=== PATIENT | male | born 1945 | race Caucasian/White ===

== ENCOUNTER → 2018-02-08 | Outpatient (CLI) | payer MEDICARE ==
[~2018-02-08] MED LIST: BENTYL10 MG PO; BYETTA10 MCG/0.1 SC; CADUET 10 MG-201 TA1 PO; CRESTOR5 MG PO; GLYBURIDE2.5 MG PO; JANUVIA50 MG PO; LANSOPRAZOLE30 MG PO; LOSARTAN POTAS100 MG PO; MECLIZINE HCL50 MG PO; METFORMIN1000 MG PO; METOCLOPRAMIDE5 MG PO; ONGLYZA5 MG PO; PRILOSEC40 M1 PO; PROTONIX40 MG PO; STOOL SOFT-STI1 EACH PO; VICODIN 5/500 505 MG PO
[2018-02-08 08:48] LABS: CREATININE 1.21 mg/dL (0.70-1.30)
== END | disposition home or self-care (01) ==
LOC: LAB 08:24 → CT 09:00
PROVIDERS: Internal Medicine
DX: K21.9 Gastro-esophageal reflux disease without esophagitis (principal); R49.0 Dysphonia; R07.0 Pain in throat; E11.9 Type 2 diabetes mellitus without complications; E78.00 Pure hypercholesterolemia, unspecified

== ENCOUNTER → 2018-02-21 | Outpatient (CLI) | payer MEDICARE | END | disposition home or self-care (01) | LOC: US 07:08 | DX: K76.0 Fatty (change of) liver, not elsewhere classified (principal) ==

== ENCOUNTER → 2018-03-03 | Outpatient (CLI) | payer MEDICARE ==
[~2018-03-03] MED LIST changes: +GLUCOTROL10 MG PO; +IMPOYZ60 GM T; +NORVASC2.5 MG PO; +PAROXETINE10 MG PO; +SEROQUEL200 MG PO; +TRIDERM28.4 GM T; +TRULICITY1.5 MG/0.5 SC
== END | disposition home or self-care (01) ==
LOC: NM 07:00
DX: K59.00 Constipation, unspecified (principal); R10.11 Right upper quadrant pain

== ENCOUNTER 2018-03-12 17:29 | Inpatient (IN) | payer MEDICARE ==
[~2018-03-12] VITALS: Ht 172.7 cm; Wt 73.1 kg
[~2018-03-12 17:29] MED LIST changes: -GLUCOTROL10 MG PO; -IMPOYZ60 GM T; -NORVASC2.5 MG PO; -PAROXETINE10 MG PO; -SEROQUEL200 MG PO; -TRIDERM28.4 GM T; -TRULICITY1.5 MG/0.5 SC
[2018-03-12 17:34] VITALS: BP 175/84
[2018-03-12 18:12] LABS: BASO % 0.3 % (0.0-1.0); EOS # 0.1 10*3/uL (0.0-0.4); EOS % 0.8 % (1.0-4.0); HEMATOCRIT 36.5 % (42.0-52.0); HEMOGLOBIN 12.3 g/dl (14.0-18.0); LYMPH # 1.7 10*3/uL (1.3-4.4); LYMPH % 21.1 % (27.0-41.0); MEAN CELL VOLUME 95.3 fl (80.0-94.0); MEAN CORPUSCULAR HGB 32.1 pg (27.0-31.0); MEAN CORPUSCULAR HGB CONC 33.7 g/dl (33.0-37.0); MEAN PLATELET VOLUME 9.6 fl (9.6-12.3); MONO # 0.5 10*3/uL (0.1-1.0); MONO % 6.6 % (3.0-9.0); NEUT # 5.7 10*3/uL (2.3-7.9); NEUT % 70.8 % (47.0-73.0); PLATELET COUNT AUTOMATED 229 10*3/uL (130-400); RED BLOOD COUNT 3.83 10*6/uL (4.50-5.90); RED CELL DISTRI WIDTH 13.3 % (0-14.5)
[2018-03-12 18:30] LABS: ALBUMIN 3.8 gm/dl (3.1-4.5); ALKALINE PHOSPHATASE 63 U/L (45-117); BUN 31 mg/dl (7-24); CHLORIDE 106 mmol/L (98-107); CREATININE 1.38 mg/dL (0.70-1.30); POTASSIUM 5.1 mmol/L (3.5-5.1); SGOT/AST 17 IU/L (3-35); SGPT/ALT 27 U/L (12-78); SODIUM 139 mmol/L (136-145); TOTAL PROTEIN 7.2 gm/dL (6.4-8.2)
[2018-03-12 18:31] LABS: TROPONIN I < 0.015 ng/ml (<0.045)
[2018-03-12 19:08] LABS: BILIRUBIN 1+ (NEGATIVE); BLOOD NEGATIVE (NEGATIVE); COLOR YELLOW (YELLOW); GLUCOSE TRACE (NEGATIVE); KETONE 1+ (NEGATIVE); LEUKO ESTERASE NEGATIVE (NEGATIVE); NITRITE NEGATIVE (NEGATIVE); SPECIFIC GRAVITY >= 1.030 (1.005-1.030)
[2018-03-12 19:16] LABS: CLARITY SL CLOUDY (CLEAR); HYALINE CAST TNTC; RBC 0-2 rbc/hpf (0-2)
[2018-03-12 19:28] VITALS: BP 142/66
[2018-03-12 19:43] VITALS: BP 152/74
[2018-03-12] MEDS ORDERED: TRULICITY1.5 MG/0.5 SC (19:45)
[2018-03-12] MEDS ORDERED: NORVASC2.5 MG PO (19:47)
[2018-03-12] MEDS ORDERED: GLUCOTROL10 MG PO (19:48)
[2018-03-12] MEDS ORDERED: TRIDERM28.4 GM T (19:49)
[2018-03-12] MEDS ORDERED: IMPOYZ60 GM T (19:50)
[2018-03-12 20:19] VITALS: BP 146/70
[2018-03-12 20:30] VITALS: BP 154/76
[2018-03-13] VITALS: BP 115/57
[2018-03-13 06:02] LABS: BASO % 0.7 % (0.0-1.0); EOS # 0.2 10*3/uL (0.0-0.4); EOS % 3.2 % (1.0-4.0); HEMATOCRIT 35.5 % (42.0-52.0); LYMPH # 1.9 10*3/uL (1.3-4.4); LYMPH % 32.7 % (27.0-41.0); MEAN CELL VOLUME 95.4 fl (80.0-94.0); MEAN CORPUSCULAR HGB 32.3 pg (27.0-31.0); MEAN CORPUSCULAR HGB CONC 33.8 g/dl (33.0-37.0); MEAN PLATELET VOLUME 9.4 fl (9.6-12.3); MONO # 0.6 10*3/uL (0.1-1.0); MONO % 9.3 % (3.0-9.0); NEUT # 3.2 10*3/uL (2.3-7.9); NEUT % 53.8 % (47.0-73.0); PLATELET COUNT AUTOMATED 188 10*3/uL (130-400); RED BLOOD COUNT 3.72 10*6/uL (4.50-5.90); WHITE BLOOD COUNT 5.9 10*3/uL (4.8-10.8)
[2018-03-13 06:08] LABS: ACT PARTIAL THROMBO TIME 40.5 SECONDS (20.8-31.5)
[2018-03-13 06:22] LABS: CHLORIDE 108 mmol/L (98-107); CHOLESTEROL 88 mg/dL (<200); CREATININE 0.93 mg/dL (0.70-1.30); PHOSPHOROUS 3.2 mg/dL (2.5-4.9); POTASSIUM 4.3 mmol/L (3.5-5.1); SODIUM 140 mmol/L (136-145); TRIGLYCERIDES 126 mg/dl (<150); VLDL CHOLESTEROL 25 mg/dL (6-40)
[2018-03-13 06:33] LABS: FREE T4 1.11 ng/dl (0.76-1.46); HDL CHOLESTEROL 42 mg/dl (40-60); LDL CHOLESTEROL 21 mg/dL (9-159)
[2018-03-13 06:49] LABS: BUN 19 mg/dl (7-24)
[2018-03-13 07:27] LABS: VITAMIN D, 25-HYDROXY 58.4 ng/mL (30-100)
[2018-03-13 08:00] VITALS: BP 149/69
[2018-03-13] MEDS ORDERED: PAROXETINE10 MG PO (08:00)
[2018-03-13] MEDS ORDERED: SEROQUEL200 MG PO (11:49)
[2018-03-13 12:00] VITALS: BP 147/71
== END 2018-03-13 14:58 | disposition home or self-care (01) | DRG 682 ==
LOC: ED 17:29 → EDHOLD 19:12 → 5E 19:58
PROVIDERS: Emergency Medicine; Internal Medicine
DX: N17.0 Acute kidney failure with tubular necrosis (principal); G93.41 Metabolic encephalopathy; D66 Hereditary factor VIII deficiency; E11.9 Type 2 diabetes mellitus without complications; D53.9 Nutritional anemia, unspecified; E86.0 Dehydration; R41.0 Disorientation, unspecified; I10 Essential (primary) hypertension; R41.3 Other amnesia; R79.89 Other specified abnormal findings of blood chemistry; Z79.84 Long term (current) use of oral hypoglycemic drugs; Z88.6 Allergy status to analgesic agent; Z88.8 Allergy status to other drugs, medicaments and biological substances; Z83.6 Family history of other diseases of the respiratory system; Z83.3 Family history of diabetes mellitus; Z79.899 Other long term (current) drug therapy; Z82.3 Family history of stroke; Z82.49 Family history of ischemic heart disease and other diseases of the circulatory system; Z84.1 Family history of disorders of kidney and ureter

== ENCOUNTER → 2019-01-12 | Day surgery (SDC) | payer MEDICARE ==
[~2019-01-12] VITALS: Ht 175.2 cm; Wt 87.5 kg
[~2019-01-12] MED LIST changes: +CLARITIN10 MG PO; +GLUCOTROL10 MG PO; +IMPOYZ60 GM T; +NORVASC10 MG PO; +NORVASC2.5 MG PO; +PAROXETINE10 MG PO; +SEROQUEL200 MG PO; +TRIDERM28.4 GM T; +TRULICITY1.5 MG/0.5 SC; +VITAMIN D PO
--- NOTE | ~2019-01-12 | PROC NOTE ---
[place], [place] PROCEDURE NOTE NAME: [facility] CR[facility] #: [id number] UNIT #: [id number] ROOM: DOCTOR: TASHI BONNER MD BIRTHDATE: [birth year] DOS: 01/12/2019 PREOPERATIVE DIAGNOSIS: Gastritis. POSTOPERATIVE DIAGNOSIS: Gastritis, duodenitis. PROCEDURE: EGD with antral biopsies x 2. ENDOSCOPIST: Tashi Bonner MD CELL TUBER HAND: MING. ANESTHESIA: MAC. INDICATIONS: This is a 73-year-old gentleman here with epigastric pain and history of gastritis, for the above-mentioned procedure. The procedure and its complications were explained to the patient in detail preoperatively. Complications that were discussed included but are not limited to bleeding, stomach perforation, and missed lesions. He agreed to proceed. DESCRIPTION OF PROCEDURE: After identifying the patient, the patient was brought to the endoscopy suite and placed in the left lateral position. After IV sedation was administered by the anesthesia team, a timeout procedure was called and a bite block was placed. An adult gastroscope was introduced into the mouth and advanced sequentially into the esophagus, stomach, and the first 2 parts of the duodenum. There was found to be mild inflammation of the duodenum and inflammation in the stomach, in the area of the antrum, and body. Antral biopsies x 2 were taken and sent for histopathological diagnosis. After hemostasis was confirmed, the scope was withdrawn. The esophagus was found to be within normal limits. The patient was brought back to the recovery in a stable fashion. There were no complications. Dr. Tashi Bonner, the attending surgeon, was present throughout the operating case. Tashi Bonner MD CM:PROCNOTE:PROCEDURE NOTE [id number] TASHI BONNER MD
[2019-01-12 06:30] VITALS: BP 178/87
[2019-01-12 07:35] VITALS: BP 125/72
[2019-01-12 07:50] VITALS: BP 131/79
== END | disposition home or self-care (01) ==
LOC: SDC 01-11 08:00
DX: K29.50 Unspecified chronic gastritis without bleeding (principal); K29.80 Duodenitis without bleeding; K21.9 Gastro-esophageal reflux disease without esophagitis; I10 Essential (primary) hypertension; E11.9 Type 2 diabetes mellitus without complications; E78.00 Pure hypercholesterolemia, unspecified; Z88.8 Allergy status to other drugs, medicaments and biological substances; Z79.84 Long term (current) use of oral hypoglycemic drugs; Z79.899 Other long term (current) drug therapy; Z98.890 Other specified postprocedural states; Z82.3 Family history of stroke; Z83.3 Family history of diabetes mellitus

== ENCOUNTER → 2020-05-08 | Outpatient (CLI) | payer MEDICARE | END | disposition home or self-care (01) | LOC: MRI 12:52 | DX: I67.82 Cerebral ischemia (principal); J32.0 Chronic maxillary sinusitis ==

== ENCOUNTER → 2021-01-17 | Outpatient (CLI) | payer MEDICARE | END | disposition home or self-care (01) | LOC: RAD 11:51 | PROVIDERS: ATTEND Chiropractor | DX: M48.05 Spinal stenosis, thoracolumbar region (principal); M25.78 Osteophyte, vertebrae ==

== ENCOUNTER → 2021-06-13 | Outpatient (CLI) | payer MEDICARE | END | disposition home or self-care (01) | LOC: RAD 10:59 | PROVIDERS: ATTEND Nurse Practitioner Primary Care | DX: M47.817 Spondylosis without myelopathy or radiculopathy, lumbosacral region (principal); M47.814 Spondylosis without myelopathy or radiculopathy, thoracic region; M77.31 Calcaneal spur, right foot ==

== ENCOUNTER → 2021-11-10 | Outpatient (CLI) | payer MEDICARE | END | disposition home or self-care (01) | LOC: MRI 12:57 | PROVIDERS: ATTEND Podiatrist | DX: M19.071 Primary osteoarthritis, right ankle and foot (principal); M89.371 Hypertrophy of bone, right ankle and foot; M76.821 Posterior tibial tendinitis, right leg; M93.279 Osteochondritis dissecans, unspecified ankle and joints of foot; M25.471 Effusion, right ankle; M77.31 Calcaneal spur, right foot ==

== ENCOUNTER → 2023-01-20 | Outpatient (CLI) | payer MEDICARE | END | disposition home or self-care (01) | LOC: ORTHO 01:14 | PROVIDERS: ATTEND Orthopaedic Surgery | DX: S52.92XA Unspecified fracture of left forearm, initial encounter for closed fracture (principal); X58.XXXA Exposure to other specified factors, initial encounter; Y93.89 Activity, other specified; Y92.89 Other specified places as the place of occurrence of the external cause; Y99.8 Other external cause status ==

== ENCOUNTER → 2023-10-18 | Outpatient (CLI) | payer OTHER | END | disposition home or self-care (01) | LOC: CARD 09:56 | PROVIDERS: ATTEND Physician Assistant | DX: I49.3 Ventricular premature depolarization (principal); I49.1 Atrial premature depolarization; I10 Essential (primary) hypertension ==

== ENCOUNTER → 2024-01-13 | Outpatient (CLI) | payer OTHER | END | disposition home or self-care (01) | LOC: RAD 11:55 | PROVIDERS: ATTEND Chiropractor | DX: M47.817 Spondylosis without myelopathy or radiculopathy, lumbosacral region (principal); M25.78 Osteophyte, vertebrae ==

== ENCOUNTER 2024-07-13 14:43 | Emergency (ER) | payer OTHER ==
[~2024-07-13] VITALS: Ht 177.8 cm; Wt 81.6 kg
[2024-07-13 14:57] VITALS: BP 149/83
[2024-07-13] MEDS ORDERED: CEPHALEXIN500 M1 PO (17:16)
== END 2024-07-13 17:56 | disposition home or self-care (01) ==
LOC: ED 14:43
DX: S00.03XA Contusion of scalp, initial encounter (principal); S00.01XA Abrasion of scalp, initial encounter; F03.90 Unspecified dementia, unspecified severity, without behavioral disturbance, psychotic disturbance, mood disturbance, and anxiety; E11.9 Type 2 diabetes mellitus without complications; I10 Essential (primary) hypertension; K21.9 Gastro-esophageal reflux disease without esophagitis; E78.00 Pure hypercholesterolemia, unspecified; Z88.6 Allergy status to analgesic agent; Z88.8 Allergy status to other drugs, medicaments and biological substances; W01.198A Fall on same level from slipping, tripping and stumbling with subsequent striking against other object, initial encounter; Y92.009 Unspecified place in unspecified non-institutional (private) residence as the place of occurrence of the external cause; Y99.8 Other external cause status

== ENCOUNTER → 2024-07-14 | Outpatient (CLI) | payer OTHER ==
[~2024-07-14] MED LIST changes: +CEPHALEXIN500 M1 PO
== END | disposition home or self-care (01) ==
LOC: WOUNDCARE 12:18
PROVIDERS: ATTEND Nurse Practitioner Family
DX: S51.012A Laceration without foreign body of left elbow, initial encounter (principal); S61.412A Laceration without foreign body of left hand, initial encounter; S61.411A Laceration without foreign body of right hand, initial encounter; E11.9 Type 2 diabetes mellitus without complications; I10 Essential (primary) hypertension; K21.9 Gastro-esophageal reflux disease without esophagitis; D68.311 Acquired hemophilia; F03.90 Unspecified dementia, unspecified severity, without behavioral disturbance, psychotic disturbance, mood disturbance, and anxiety; Z79.84 Long term (current) use of oral hypoglycemic drugs; Z79.899 Other long term (current) drug therapy; W19.XXXA Unspecified fall, initial encounter; Y93.89 Activity, other specified; Y92.89 Other specified places as the place of occurrence of the external cause; Y99.8 Other external cause status

== ENCOUNTER → 2024-07-21 | Outpatient (CLI) | payer OTHER | END | disposition home or self-care (01) | LOC: WOUNDCARE 03:13 | PROVIDERS: ATTEND Nurse Practitioner Family | DX: S51.012D Laceration without foreign body of left elbow, subsequent encounter (principal); S61.412D Laceration without foreign body of left hand, subsequent encounter; S61.411D Laceration without foreign body of right hand, subsequent encounter; E11.9 Type 2 diabetes mellitus without complications; I10 Essential (primary) hypertension; K21.9 Gastro-esophageal reflux disease without esophagitis; D68.311 Acquired hemophilia; F03.90 Unspecified dementia, unspecified severity, without behavioral disturbance, psychotic disturbance, mood disturbance, and anxiety; Z79.84 Long term (current) use of oral hypoglycemic drugs; Z79.899 Other long term (current) drug therapy; W19.XXXD Unspecified fall, subsequent encounter ==

== ENCOUNTER → 2024-07-26 | Outpatient (CLI) | payer OTHER | END | disposition home or self-care (01) | LOC: WOUNDCARE 02:23 | PROVIDERS: ATTEND Nurse Practitioner Family | DX: S51.012D Laceration without foreign body of left elbow, subsequent encounter (principal); S61.412D Laceration without foreign body of left hand, subsequent encounter; S61.411D Laceration without foreign body of right hand, subsequent encounter; E11.9 Type 2 diabetes mellitus without complications; I10 Essential (primary) hypertension; K21.9 Gastro-esophageal reflux disease without esophagitis; D68.311 Acquired hemophilia; F03.90 Unspecified dementia, unspecified severity, without behavioral disturbance, psychotic disturbance, mood disturbance, and anxiety; Z79.84 Long term (current) use of oral hypoglycemic drugs; Z79.899 Other long term (current) drug therapy; W19.XXXD Unspecified fall, subsequent encounter ==

== ENCOUNTER → 2024-08-02 | Outpatient (CLI) | payer OTHER | END | disposition home or self-care (01) | LOC: WOUNDCARE 02:13 | PROVIDERS: ATTEND Nurse Practitioner Family | DX: S51.012D Laceration without foreign body of left elbow, subsequent encounter (principal); S61.412D Laceration without foreign body of left hand, subsequent encounter; S61.411D Laceration without foreign body of right hand, subsequent encounter; E11.9 Type 2 diabetes mellitus without complications; I10 Essential (primary) hypertension; K21.9 Gastro-esophageal reflux disease without esophagitis; D68.311 Acquired hemophilia; F03.90 Unspecified dementia, unspecified severity, without behavioral disturbance, psychotic disturbance, mood disturbance, and anxiety; Z79.84 Long term (current) use of oral hypoglycemic drugs; Z79.899 Other long term (current) drug therapy; W19.XXXD Unspecified fall, subsequent encounter ==

== ENCOUNTER 2024-10-14 14:23 | Emergency (ER) | payer OTHER ==
[~2024-10-14] VITALS: Ht 177.8 cm; Wt 81.6 kg
[2024-10-14] MEDS ORDERED: SODIUM CHLORIDE 0.9% 1,000 ML IV ONE (14:30)
[2024-10-14] MEDS ORDERED: fentaNYL CITRATE/PF 50 MCG/ML SYRINGE IV ONE (14:30)
[2024-10-14] MEDS ORDERED: Ondansetron Hydrochloride 4 MG/2 ML VIAL IV ONE (14:30)
[2024-10-14 15:35] VITALS: BP 181/86
== END 2024-10-14 15:39 | disposition short-term general hospital (02) ==
LOC: ED 14:23
DX: S06.6X0A Traumatic subarachnoid hemorrhage without loss of consciousness, initial encounter (principal); S06.5X0A Traumatic subdural hemorrhage without loss of consciousness, initial encounter; K21.9 Gastro-esophageal reflux disease without esophagitis; E78.00 Pure hypercholesterolemia, unspecified; F03.90 Unspecified dementia, unspecified severity, without behavioral disturbance, psychotic disturbance, mood disturbance, and anxiety; E11.9 Type 2 diabetes mellitus without complications; I10 Essential (primary) hypertension; E78.5 Hyperlipidemia, unspecified; Z88.6 Allergy status to analgesic agent; Z88.8 Allergy status to other drugs, medicaments and biological substances; W10.8XXA Fall (on) (from) other stairs and steps, initial encounter; Y93.89 Activity, other specified; Y92.89 Other specified places as the place of occurrence of the external cause; Y99.8 Other external cause status